=== PATIENT | female | born 1980 | race Caucasian/White ===

== ENCOUNTER 2019-03-19 15:25 | Outpatient (CLI) | payer OTHER ==
[2019-03-21] MEDS ORDERED: UBID100C24 PO (10:49)
[2019-03-22] MEDS ORDERED: ASCO100T5 PO (09:00)
[2019-03-22] MEDS ORDERED: MAGN400C PO (09:00)
[2019-03-22] MEDS ORDERED: FISH1CAP PO (09:00)
[2019-03-22] MEDS ORDERED: VITA100T4 PO (09:00)
[2019-03-22] MEDS ORDERED: CYAN50TA PO (09:00)
== END 2019-03-19 23:59 | disposition home or self-care (01) ==
LOC: UNMERGE 15:25 → MERGE 15:25 → STAR 15:25
PROVIDERS: ATTEND Obstetrics & Gynecology
DX: Z02.9 Encounter for administrative examinations, unspecified (principal)

== ENCOUNTER 2019-03-26 12:11 | Observation (INO) | payer OTHER ==
[~2019-03-26] VITALS: Ht 157.5 cm; Wt 94.0 kg
[~2019-03-26 12:11] MED LIST: ASCO100T5 PO; CYAN50TA PO; FISH1CAP PO; INDIGO CARMINE 0.8%, 5ML ONE; MAGN400C PO; UBID100C24 PO; VITA100T4 PO
[2019-03-26] MEDS ORDERED: LACTATED RINGERS 1,000 ML IV SCH (12:52)
[2019-03-26 13:16] LABS: HCG UR SG 1.035 (1.003-1.030)
[2019-03-26] MEDS ORDERED: SILVER NITRATE STICK TP ONE (14:12)
[2019-03-26] MEDS ORDERED: BUPIVACAINE/PF 0.25% ONE (14:12)
[2019-03-26] MEDS ORDERED: FLUORESCEIN SODIUM 500 MG/5 ML ONE (14:12)
[2019-03-26] MEDS ORDERED: INDIGO CARMINE 0.8%, 5ML ONE (14:12)
[2019-03-26] MEDS ORDERED: EPINEPHRINE 1 MG/ML, 1ML ONE (14:13)
[2019-03-26] MEDS ORDERED: MIDAZOLAM 1 MG/ML, 2ML ONE (14:18)
[2019-03-26] MEDS ORDERED: FENTANYL PF 250 MCG/5ML ONE (14:18)
[2019-03-26] MEDS ORDERED: APREPITANT 40 MG CAPSULE ONE (14:41)
[2019-03-26] MEDS ORDERED: SUGAMMADEX IVPush ONE (14:41)
[2019-03-26] MEDS ORDERED: GABAPENTIN 300 MG CAPSULE ONE (14:41)
[2019-03-26] MEDS ORDERED: FENTANYL PF 100 MCG/2ML IV PRN (15:30)
[2019-03-26] MEDS ORDERED: OXYcodone 5 MG/5 ML ORAL.SOL UDC PO PRN (15:30)
[2019-03-26] MEDS ORDERED: HYDROmorphone 2 MG/ML, 1ML IVPush PRN (15:30)
[2019-03-26] MEDS ORDERED: HALOPERIDOL 5 MG/ML IV PRN (15:30)
[2019-03-26] MEDS ORDERED: PROMETHAZINE 25 MG/ML, 1ML IV PRN (15:30)
[2019-03-26] MEDS ORDERED: hydrALAzine 20 MG/ML, 1ML IV PRN (15:30)
[2019-03-26] MEDS ORDERED: ACETAMINOPHEN 325 MG TABLET PO PRN ×3 (15:30→19:00)
[2019-03-26] MEDS ORDERED: MEPERIDINE/PF 25MG/0.5ML IVPush PRN (15:30)
[2019-03-26] MEDS ORDERED: PROPOFOL 10 MG/ML, 20ML ONE (16:31)
[2019-03-26] MEDS ORDERED: ONDANSETRON 2MG/ML, 2ML ONE (16:31)
[2019-03-26] MEDS ORDERED: KETOROLAC 30 MG/1 ML ONE (16:31)
[2019-03-26] MEDS ORDERED: CEFOTETAN PMX 2GM/50ML 50 ML ONE (16:31)
[2019-03-26] MEDS ORDERED: ROCURONIUM 10MG/ML,5ML ONE (16:31)
[2019-03-26] MEDS ORDERED: LIDOCAINE-MPF 2% ,5ML ONE (16:31)
[2019-03-26] MEDS ORDERED: DEXAMETHASONE 4 MG/ML, 1ML ONE (16:31)
[2019-03-26] MEDS ORDERED: MEPERIDINE/PF 50 MG/ML ONE (17:06)
[2019-03-26] MEDS ORDERED: OXYcodone 5 MG/5 ML ORAL.SOL UDC ONE (17:45)
[2019-03-26] MEDS ORDERED: ACETAMINOPHEN 650 MG/20.3 ML UDC ONE (17:45)
[2019-03-26] MEDS ORDERED: morphine SULFATE 10 MG/ML, 1ML IV PRN (19:00)
[2019-03-26] MEDS ORDERED: ONDANSETRON 2MG/ML, 2ML IV PRN (19:00)
[2019-03-26] MEDS ORDERED: ACETAMINOPHEN 650 MG SUPP PR PRN ×2 (19:00)
[2019-03-26 19:21] VITALS: BP 121/79
[2019-03-26] MEDS: SIMETHICONE 80 MG CHEW TAB PO SCH (19:58)
[2019-03-26] MEDS: DOCUSATE 100 MG CAPSULE PO SCH (19:58)
[2019-03-26] MEDS: POTASSIUM CHLORIDE 20 MEQ in D5%-LACTATED RINGERS 1,000 ML IV SCH (19:58)
[2019-03-26] MEDS ORDERED: ZOLPIDEM 5MG TABLET PO PRN (21:00)
[2019-03-26] MEDS: SODIUM CHLORIDE FLUSH 10ML SYR IVF SCH (21:00)
[2019-03-26] MEDS: OXYcodone/APAP 5/325MG TABLET PO PRN (21:58)
[2019-03-27 00:16] VITALS: BP 113/69
[2019-03-27] MEDS: OXYcodone/APAP 5/325MG TABLET PO PRN ×4 (02:07→14:49)
[2019-03-27] MEDS: POTASSIUM CHLORIDE 20 MEQ in D5%-LACTATED RINGERS 1,000 ML IV SCH ×2 (03:05→11:10)
[2019-03-27 03:36] VITALS: BP 97/58
[2019-03-27 07:30] VITALS: BP 120/80
[2019-03-27] MEDS: DOCUSATE 100 MG CAPSULE PO SCH (08:29)
[2019-03-27] MEDS: SIMETHICONE 80 MG CHEW TAB PO SCH ×2 (08:29→16:25)
[2019-03-27] MEDS: SODIUM CHLORIDE FLUSH 10ML SYR IVF SCH (08:30)
[2019-03-27 13:24] VITALS: BP 110/70
[2019-03-27 16:48] VITALS: BP 124/73
[2019-03-27] MEDS ORDERED: OXYC-302 PO (16:51)
[2019-03-27] MEDS ORDERED: IBUP-1223 PO (16:51)
[2019-03-27] MEDS ORDERED: DOCU-131 PO (16:52)
[2019-03-27] MEDS ORDERED: SIME80TA16 PO (16:53)
== END 2019-03-27 17:46 | disposition home or self-care (01) ==
LOC: OUT 12:11 → MERGE 14:30 → 4NOR 18:23 → OUT 22:24 → 4NOR 22:25
PROVIDERS: ADMIT Obstetrics & Gynecology; ATTEND Obstetrics & Gynecology
DX: D25.9 Leiomyoma of uterus, unspecified (principal); N92.0 Excessive and frequent menstruation with regular cycle; N94.6 Dysmenorrhea, unspecified; Z88.0 Allergy status to penicillin; Z87.891 Personal history of nicotine dependence
CPT/HCPCS: 36415; 58571; 81025; 85014; 85018; 88307; G0378; J1100; J1885; J2175; J2250; J2405; J2704; J3010; J3480; J3490; J7120; J7121; J8501; J0171

== ENCOUNTER → 2019-09-27 | Outpatient (CLI) | payer OTHER ==
[~2019-09-27] MED LIST changes: +DOCU-131 PO; +IBUP-1223 PO; -INDIGO CARMINE 0.8%, 5ML ONE; +OXYC-302 PO; +SIME80TA16 PO
== END | disposition home or self-care (01) ==
LOC: CVU 15:21
PROVIDERS: ATTEND Internal Medicine Cardiovascular Disease
DX: R06.02 Shortness of breath (principal); R94.31 Abnormal electrocardiogram [ECG] [EKG]; Z82.49 Family history of ischemic heart disease and other diseases of the circulatory system
CPT/HCPCS: 93306